=== PATIENT | male | born 1990 | race Hispanic/Latino ===

== ENCOUNTER 2018-09-23 06:02 | Day surgery (SDC) | payer MEDICAID ==
[2018-09-23] MEDS ORDERED: WATER FOR IRRIG STERILE IR ONE ×2 (07:17→08:14)
[2018-09-23] MEDS ORDERED: NACL 0.9% 1000 ML 1,000 ML ONE (07:19)
--- NOTE | 2018-09-23 07:40 | Anesthesia Consultation ---
Anesthesia Consult and Med Hx Date of service: 09/23/18 - Airway Anesthetic Teeth Evaluation: Good ROM Head & Neck: Adequate Mental/Hyoid Distance: Adequate Mallampati Class: Class II Intubation Access Assessment: Possibly Difficult - Pulmonary Exam CTA: Yes - Cardiac Exam Cardiac Exam: RRR - Pre-Operative Health Status ASA Pre-Surgery Classification: ASA3 Proposed Anesthetic Plan: MAC - Pulmonary Hx Smoking: Yes (Quit 2016) SOB: Yes Hx Sleep Apnea: Yes (Cpap) - Cardiovascular System Hx Hypertension: Yes - Other Systems Hx Obesity: Yes (BMI 60)
--- NOTE | 2018-09-23 07:41 | Anesthesia Day of Surgery ---
Anesthesia Day of Surgery - Day of Surgery Patient Examined: Yes Patient H&P Reviewed: Yes Patient is NPO: Yes
[2018-09-23] MEDS ORDERED: NACL 0.9% 1000 ML 1,000 ML IV SCH (08:00)
[2018-09-23] MEDS ORDERED: KETALAR ONE (08:12)
[2018-09-23] MEDS ORDERED: WATER FOR IRRIG STERILE ONE (08:14)
[2018-09-23] MEDS ORDERED: DIPRIVAN 10 MG/ML IV ONE (08:17)
[2018-09-23 09:07] VITALS: BP 143/77
--- NOTE | 2018-09-23 09:29 | Operative Report ---
PREOPERATIVE DIAGNOSIS: Morbid obesity. POSTOPERATIVE DIAGNOSIS: Morbid obesity. PROCEDURE: EGD with biopsies. COMPLICATIONS: None. BLEEDING: None. SPECIMENS: Antral biopsies. INDICATIONS: The patient is a 28-year-old male, morbidly obese, who wishes to undergo a weight loss operation. He is here for his preoperative EGD. Informed consent was obtained. DESCRIPTION OF PROCEDURE: The patient was brought to the operating suite where he was placed in the left lateral decubitus position, underwent MAC anesthesia. A bite block was placed and a timeout was called. A standard adult gastroscope was inserted into the oropharynx, down the esophagus, into the first portion of the duodenum. On retroflexion view, there was no hiatal hernia. Antral biopsies were taken for H. pylori. With this, the air was desufflated. The gastroscope was removed. The patient tolerated the procedure well and was transferred to PACU in stable condition. FINDINGS: Normal EGD. JOB# [id number] [facility]ENTERAdams
== END 2018-09-23 06:03 | disposition home or self-care (01) ==
LOC: GIO 06:02
PROVIDERS: ATTEND Specialist
DX: K30 Functional dyspepsia (principal); E66.01 Morbid (severe) obesity due to excess calories; I10 Essential (primary) hypertension; G47.30 Sleep apnea, unspecified; K21.9 Gastro-esophageal reflux disease without esophagitis; E03.9 Hypothyroidism, unspecified; F41.9 Anxiety disorder, unspecified; Z98.890 Other specified postprocedural states; Z98.84 Bariatric surgery status; Z68.43 Body mass index [BMI] 50.0-59.9, adult; Z79.899 Other long term (current) drug therapy; Z87.891 Personal history of nicotine dependence; Z88.8 Allergy status to other drugs, medicaments and biological substances
CPT/HCPCS: 43239; 82962; 88305; 88342; J2704; J7030